=== PATIENT | male | born 1980 | race African-American/Black ===

== ENCOUNTER 2020-01-10 21:42 | Emergency (ER) | payer SELFPAY ==
[~2020-01-10] VITALS: Ht 193 cm; Wt 108.9 kg
[2020-01-10 21:47] VITALS: BP_SYST 135
--- NOTE | 2020-01-10 21:50 | NUR ---
Patient to ER H1 for evaluation. Side rails up.
--- NOTE | 2020-01-10 21:52 | NUR ---
ER Dr. RODRIGUEZ at bedside examining patient.
--- NOTE | 2020-01-10 21:55 | NUR ---
PT BIB BY [facility] FOR MEDICAL CLEARANCE. PER LAW ENFORCEMENT PT HAS BEEN ARRESTED FOR SCRATCHING A CARE AT HIS CARE FACILITY. PT HAS HX OF DIABETES AND PSYCH HX, REPORTS COMPLIANCE WITH MEDICATION. NO SYMPTOMS OR COMPLAINTS AT THIS TIME. WILL CONTINUE TO MONITOR.
--- NOTE | 2020-01-10 22:01 | NUR ---
PT RECIEVED INSULIN PRIOR TO ARRIVAL FOR BGL LEVEL OF 290. POC GLUCOSE IS 199. DR RODRIGUEZ AWARE, NO ORDERS RECIEVED.
--- NOTE | 2020-01-10 22:07 | NUR ---
Patient given written and verbal discharge instructions and verbalizes understanding. ER MD discussed with patient the results and treatment provided. Patient in stable condition. ID arm band removed. Patient educated on pain management and to follow up with PMD. Pain Scale 0. Opportunity for questions provided and answered. Medication side effect fact sheet provided.
[2020-01-10 22:08] VITALS: BP_SYST 135
== END 2020-01-10 22:08 ==
LOC: SED 21:42
DX: R73.9 Hyperglycemia, unspecified (principal)
CPT/HCPCS: 99283